=== PATIENT | female | born 1980 | race Caucasian/White ===

== ENCOUNTER → 2020-08-11 | Outpatient (CLI) | payer OTHER ==
[2020-08-11 11:29] LABS: HEMOGLOBIN 12.8 gm/dl (12.3-15.3); RED BLOOD COUNT 4.27 M/UL (4.00-5.10); WHITE BLOOD COUNT 8.3 K/UL (4.5-11.0)
[2020-08-11 12:02] LABS: BUN/CREATININE RATIO 22 (0-10)
[2020-08-12 07:08] LABS: PROGESTERONE 0.2 ng/mL (.)
[2020-08-12 13:08] LABS: VITAMIN D, 25-HYDROXY 21.2 ng/mL (30.0-100.0)
[2020-08-13 11:09] LABS: INSULIN 29.2 uIU/mL (2.6-24.9)
== END ==
LOC: LAB 10:56
PROVIDERS: Nurse Practitioner Family
DX: E55.9 Vitamin D deficiency, unspecified (principal); F41.9 Anxiety disorder, unspecified; F32.9 Major depressive disorder, single episode, unspecified; E66.9 Obesity, unspecified; R94.7 Abnormal results of other endocrine function studies; Z79.899 Other long term (current) drug therapy
CPT/HCPCS: 36415; 80053; 80061; 82670; 82677; 83036; 84144; 84146; 84403; 85025